=== PATIENT | female | born 1985 | race Two or more races ===

== ENCOUNTER 2018-02-17 23:11 | Emergency (ER) | payer OTHER ==
[~2018-02-17] VITALS: Ht 167.6 cm; Wt 59.0 kg
[2018-02-17 23:49] VITALS: BP 110/68
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
[2018-02-18] MEDS ORDERED: CYCL10TA2 PO (01:03)
[2018-02-18] MEDS ORDERED: NAPR-514 PO (01:03)
[2018-02-18] MEDS ORDERED: METH4TAB2 PO (01:14)
[2018-02-18] MEDS ORDERED: diazePAM 5 MG TABLET PO ONE (01:15)
[2018-02-18] MEDS ORDERED: predniSONE 10 MG TABLET PO ONE (01:15)
[2018-02-18] MEDS ORDERED: KETOROLAC 60 MG/2 ML INJ. IM ONE (01:15)
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
== END 2018-02-18 01:30 | disposition home or self-care (01) ==
LOC: ER 23:11
DX: S13.8XXA Sprain of joints and ligaments of other parts of neck, initial encounter (principal); S33.5XXA Sprain of ligaments of lumbar spine, initial encounter; V48.5XXA Car driver injured in noncollision transport accident in traffic accident, initial encounter; Y93.89 Activity, other specified; Y92.410 Unspecified street and highway as the place of occurrence of the external cause; Y99.8 Other external cause status
CPT/HCPCS: 72040; 72100; 81025; 96372; 99283; J1885; J7512